=== PATIENT | female | born 1965 | race African-American/Black ===

== ENCOUNTER 2019-08-05 21:19 | Emergency (ER) | payer MEDICAID, OTHER ==
[~2019-08-05] VITALS: Ht 162.6 cm; Wt 50.0 kg
[2019-08-06] MEDS ORDERED: IBUPROFEN 600MG TABLET PO ONE (00:15)
[2019-08-06 00:16] VITALS: BP 128/80
== END 2019-08-06 00:30 | disposition home or self-care (01) ==
LOC: ER 21:19
DX: M25.512 Pain in left shoulder (principal); W01.0XXA Fall on same level from slipping, tripping and stumbling without subsequent striking against object, initial encounter; F41.9 Anxiety disorder, unspecified; F32.9 Major depressive disorder, single episode, unspecified; E11.9 Type 2 diabetes mellitus without complications; Y93.01 Activity, walking, marching and hiking; Y92.488 Other paved roadways as the place of occurrence of the external cause; Z88.0 Allergy status to penicillin
CPT/HCPCS: 99283

== ENCOUNTER 2022-05-15 12:32 | Emergency (ER) | payer OTHER ==
[~2022-05-15] VITALS: Ht 162.6 cm; Wt 69.0 kg
[2022-05-15 12:37] VITALS: BP 120/81
[2022-05-15] MEDS ORDERED: ASPIRIN 81MG TABLET PO ONE (13:00)
[2022-05-15] MEDS ORDERED: ASPIRIN 81MG TABLET PO NR (14:00)
[2022-05-15 15:04] LABS: BASOPHILS % 0.3 % (0.0-2.0); EOSINOPHILS % 2.5 % (0.0-5.0); HEMATOCRIT. 42.9 % (36.0-48.0); HEMOGLOBIN. 14.2 g/dL (12.0-16.0); LYMPHOCYTES % 39.4 % (20.0-50.0); MEAN CORPUSCULAR VOLUME 93.9 fL (81.0-99.0); MEAN PLATELET VOLUME 8.5 fl (7.4-10.4); MONOCYTES % 9.9 % (2.0-8.0); NEUTROPHILS % 47.9 % (40.0-76.0); PLATELET 359 x1000/uL (130-400); RED BLOOD CELL COUNT 4.57 mill/uL (4.2-5.4)
[2022-05-15 15:10] LABS: CHLORIDE 107 mEq/L (98-107)
== END 2022-05-15 17:00 | disposition home or self-care (01) ==
LOC: ER 12:32
DX: R07.89 Other chest pain (principal); F41.9 Anxiety disorder, unspecified; F32.9 Major depressive disorder, single episode, unspecified; E11.9 Type 2 diabetes mellitus without complications; Z88.0 Allergy status to penicillin; Z90.49 Acquired absence of other specified parts of digestive tract; Z87.440 Personal history of urinary (tract) infections; Z98.890 Other specified postprocedural states
CPT/HCPCS: 36415; 71045; 80053; 81003; 83880; 84484; 85025; 93005; 99285

== ENCOUNTER 2022-09-06 20:20 | Emergency (ER) | payer MEDICAID, OTHER ==
[~2022-09-06] VITALS: Ht 167.6 cm; Wt 85.0 kg
[2022-09-06] MEDS ORDERED: KETOROLAC 60MG/2ML VIAL IM ONE (22:30)
[2022-09-07] MEDS ORDERED: HYDROCODONE/ACETAMINOPHEN 5/325MG TABLET PO ONE (04:30)
[2022-09-07] MEDS ORDERED: NAPR-681 MT (04:43)
[2022-09-07] MEDS ORDERED: KETOROLAC 60MG/2ML VIAL IM NR (04:45)
[2022-09-07 05:59] VITALS: BP 136/81
== END 2022-09-07 06:01 | disposition home or self-care (01) ==
LOC: ER 20:20
DX: M25.551 Pain in right hip (principal); Z88.0 Allergy status to penicillin
CPT/HCPCS: 73502; 96372; 99283; J1885

== ENCOUNTER 2023-09-13 04:48 | Emergency (ER) | payer MEDICAID ==
[~2023-09-13] VITALS: Ht 162.6 cm; Wt 61.0 kg
[~2023-09-13 04:48] MED LIST: ACET-2708 MT; NAPR-681 MT; POTA-204 MT
[2023-09-13 04:51] VITALS: BP 146/86; PULSE 76; RESP 18; TEMP 98; O2SAT 98
[2023-09-13 05:26] LABS: BASOPHILS % 0.5 % (0.0-2.0); DIFFERENTIAL COMMENT 0; EOSINOPHILS % 1.8 % (0.0-5.0); HEMATOCRIT. 37.9 % (36.0-48.0); HEMOGLOBIN. 12.6 g/dL (12.0-16.0); LYMPHOCYTES % 23.5 % (20.0-50.0); MEAN CORPUSCULAR HEMOGLOBIN 31.3 pg (28.0-32.0); MEAN CORPUSCULAR HGB CONC 33.3 g/dL (31.0-37.0); MEAN CORPUSCULAR VOLUME 94.1 fL (81.0-99.0); MEAN PLATELET VOLUME 9.4 fl (7.4-10.4); MONOCYTES % 10.4 % (2.0-8.0); NEUTROPHILS % 63.8 % (40.0-76.0); PLATELET 275 x1000/uL (130-400); RED BLOOD CELL COUNT 4.03 mill/uL (4.2-5.4); RED CELL DISTRIBUTION WIDTH 13.5 % (11.6-14.6); WHITE BLOOD COUNT 5.6 x1000/uL (4.5-11.0)
[2023-09-13 05:35] LABS: CHLORIDE 108 mEq/L (98-107); INDEX HEMOLYSI 1 (1-3); INDEX ICTERIC 1 (1-4); INDEX LIPEMIC 1 (1-3); SODIUM 142 mEq/L (136-145)
[2023-09-13 05:41] LABS: CLARITY URINE CLOUDY (CLEAR); COLOR URINE DARK YELLOW (YELLOW); GLUCOSE URINE NEGATIVE (NEGATIVE); KETONES URINE NEGATIVE (NEGATIVE); LEUKOCYTE ESTERASE URINE 1+ (NEGATIVE); NITRITE URINE POSITIVE (NEGATIVE); OCCULT BLOOD URINE NEGATIVE (NEGATIVE); PH URINE 5.5 (4.5-8.0); PROTEIN URINE TRACE (NEGATIVE); SPECIFIC GRAVITY URINE 1.026 (1.005-1.030)
[2023-09-13 05:43] LABS: ALANINE AMINOTRANSFERASE 20 IU/L (13-61); ALBUMIN 3.5 g/dL (3.4-5.0); ASPARTATE AMINOTRANSFERASE 18 IU/L (15-37); BILIRUBIN TOTAL 0.9 mg/dL (0.1-1.0); CALCIUM 8.3 mg/dL (8.5-10.1); CARBON DIOXIDE 30 mEq/L (21-32); CREATININE 0.5 mg/dL (0.6-1.3); ETHANOL BLOOD < 10 mg/dL (<10); GLUCOSE 125 mg/dL (70-105); PROTEIN TOTAL 7.7 g/dL (6.0-8.3); UREA NITROGEN BLOOD 9 mg/dL (7-21)
[2023-09-13 05:44] LABS: RBC URINE 0-2 /hpf (0-2); YEAST URINE NONE SEEN
[2023-09-13 05:46] LABS: POTASSIUM 2.8 mEq/L (3.5-5.1)
[2023-09-13 05:51] LABS: *AMPHETAMINES SCREEN URINE PRESUMTIVE POSITIVE (NEGATIVE); *BARBITURATES SCREEN URINE NEGATIVE (NEGATIVE); *BENZODIAZEPINES SCREEN URINE NEGATIVE (NEGATIVE); *COCAINE SCREEN URINE NEGATIVE (NEGATIVE); CANNABINOID URINE SCREEN PRESUMTIVE POSITIVE (NEGATIVE); ECSTASY MDMA SCREEN URINE CONF.TEST INDICATED (NEGATIVE); METHADONE URINE SCREEN NEGATIVE (NEGATIVE); OPIATES URINE SCREEN NEGATIVE (NEGATIVE); PHENCYCLIDINE URINE SCREEN NEGATIVE (NEGATIVE)
[2023-09-13 05:54] LABS: PROTHROMBIN TIME 10.9 sec (9.6-11.0)
[2023-09-13 06:25] LABS: SQUAMOUS EPITHELIAL CELL URINE 1+ /lpf (RARE/1+)
[2023-09-13 06:26] LABS: BACTERIA URINE 3+
[2023-09-13 06:47] LABS: TROPONIN I HIGH SENSITIVITY 6 ng/L (<54)
[2023-09-13] MEDS ORDERED: POTASSIUM CHLORIDE 20MEQ/PACKET PO ONE (08:30)
[2023-09-13] MEDS ORDERED: NAPR-681 MT (14:42)
[2023-09-13] MEDS ORDERED: POTA-204 MT (14:42)
[2023-09-13] MEDS ORDERED: ACET-2708 MT (14:42)
[2023-09-13] MEDS ORDERED: NITR-87 MT (14:42)
== END 2023-09-13 15:20 | disposition home or self-care (01) ==
LOC: ER 04:48
DX: R10.33 Periumbilical pain (principal); F15.10 Other stimulant abuse, uncomplicated
CPT/HCPCS: 36415; 80053; 80305; 80320; 81003; 83605; 84484; 85025; 93005; 99284; G0480

== ENCOUNTER 2024-03-08 00:06 | Emergency (ER) | payer MEDICAID ==
[~2024-03-08] VITALS: Ht 162.6 cm; Wt 60.0 kg
[~2024-03-08 00:06] MED LIST changes: +BUPR-114 PO; +GABA-532 PO; +GABA800T97 PO; +LIDO1ADH62 TP; +NALT50TA PO; -POTA-204 MT; +RISP1 PO
[2024-03-08 00:12] VITALS: O2SAT 98
[2024-03-08 02:05] LABS: BASOPHILS % 0.7 % (0.0-2.0); HEMATOCRIT. 37.5 % (36.0-48.0); HEMOGLOBIN. 12.5 g/dL (12.0-16.0); LYMPHOCYTES % 24.1 % (20.0-50.0); MEAN CORPUSCULAR HEMOGLOBIN 31.8 pg (28.0-32.0); MEAN CORPUSCULAR HGB CONC 33.2 g/dL (31.0-37.0); MEAN CORPUSCULAR VOLUME 95.6 fL (81.0-99.0); MEAN PLATELET VOLUME 8.6 fl (7.4-10.4); NEUTROPHILS % 65.2 % (40.0-76.0); PLATELET 274 x1000/uL (130-400); RED BLOOD CELL COUNT 3.93 mill/uL (4.2-5.4); RED CELL DISTRIBUTION WIDTH 14.4 % (11.6-14.6)
[2024-03-08 02:15] LABS: CHLORIDE 112 mEq/L (98-107); POTASSIUM 3.5 mEq/L (3.5-5.1); SODIUM 141 mEq/L (136-145)
[2024-03-08 02:16] LABS: CALCIUM 8.5 mg/dL (8.7-10.4); CARBON DIOXIDE 23 mEq/L (21-32)
[2024-03-08 02:21] LABS: CREATININE 0.5 mg/dL (0.6-1.0); GLUCOSE 113 mg/dL (70-105); UREA NITROGEN BLOOD 14 mg/dL (9-23)
[2024-03-08 02:23] LABS: ACETAMINOPHEN 2 ug/mL (10-30); ALANINE AMINOTRANSFERASE 13 IU/L (10-49); ALBUMIN 4.3 g/dL (3.2-4.8); ASPARTATE AMINOTRANSFERASE 22 IU/L (<34); BILIRUBIN TOTAL 1.8 mg/dL (0.1-1.0); PROTEIN TOTAL 7.4 g/dL (6.0-8.3)
[2024-03-08 02:24] LABS: ETHANOL BLOOD < 10 mg/dL (<10)
[2024-03-08 13:26] VITALS: BP 110/68; PULSE 71; RESP 16; TEMP 98.1
== END 2024-03-08 15:42 | disposition home or self-care (01) ==
LOC: ER 00:06
DX: R45.851 Suicidal ideations (principal); F20.9 Schizophrenia, unspecified; F43.10 Post-traumatic stress disorder, unspecified; F15.90 Other stimulant use, unspecified, uncomplicated; Z88.0 Allergy status to penicillin; Z20.822 Contact with and (suspected) exposure to COVID-19
CPT/HCPCS: 80053; 80307; 80329; 80320; 85025; 36415; 99285; 87426; Z7610 ×5; G0480

== ENCOUNTER 2024-04-29 14:41 | Inpatient (IN) | payer MEDICAID ==
[~2024-04-29] VITALS: Ht 162.6 cm; Wt 76.2 kg
[2024-04-29] MEDS: SODIUM CHLORIDE 0.9% 2,000 ML IV ONE (15:15)
[2024-04-29 15:53] LABS: BASOPHILS % 0.8 % (0.0-2.0); EOSINOPHILS % 1.4 % (0.0-5.0); HEMATOCRIT. 41.4 % (36.0-48.0); LYMPHOCYTES % 23.2 % (20.0-50.0); MEAN CORPUSCULAR HEMOGLOBIN 32.7 pg (28.0-32.0); MEAN CORPUSCULAR HGB CONC 33.8 g/dL (31.0-37.0); MEAN CORPUSCULAR VOLUME 96.6 fL (81.0-99.0); MEAN PLATELET VOLUME 9.1 fl (7.4-10.4); MONOCYTES % 7.9 % (2.0-8.0); NEUTROPHILS % 66.7 % (40.0-76.0); PLATELET 334 x1000/uL (130-400); RED BLOOD CELL COUNT 4.28 mill/uL (4.2-5.4); RED CELL DISTRIBUTION WIDTH 14.7 % (11.6-14.6)
[2024-04-29 15:58] LABS: CHLORIDE 108 mEq/L (98-107); SODIUM 142 mEq/L (136-145)
[2024-04-29 15:59] LABS: CARBON DIOXIDE 25 mEq/L (21-32)
[2024-04-29 16:00] LABS: CALCIUM 9.6 mg/dL (8.7-10.4)
[2024-04-29 16:04] LABS: CREATININE 0.8 mg/dL (0.6-1.0)
[2024-04-29 16:05] LABS: GLUCOSE 102 mg/dL (70-105); UREA NITROGEN BLOOD 20 mg/dL (9-23)
[2024-04-29 16:06] LABS: AMMONIA 31 uMol/L (<32); TROPONIN I HIGH SENSITIVITY 12 ng/L (3.0-34)
[2024-04-29 16:07] LABS: ETHANOL BLOOD < 10 mg/dL (<10)
[2024-04-29 16:09] LABS: POTASSIUM 2.7 mEq/L (3.5-5.1)
[2024-04-29] MEDS: POTASSIUM CHLORIDE 20MEQ/PACKET PO ONE (16:24)
[2024-04-29 16:37] LABS: CREATINE KINASE 1288 IU/L (34-145)
[2024-04-29 21:58] VITALS: BP 118/72; PULSE 81; PULSE 87; RESP 18; TEMP 97.5
[2024-04-29] MEDS ORDERED: CELE-116 PO (22:20)
[2024-04-29] MEDS ORDERED: RISP3TAB76 PO (22:20)
[2024-04-30] VITALS: BP 121/73; PULSE 77; RESP 18; TEMP 97.5
[2024-04-30] MEDS ORDERED: CLONIDINE 0.1MG TABLET PO PRN (00:30)
[2024-04-30] MEDS ORDERED: IPRATROPIUM/ALBUTEROL 0.5-3(2.5)MG/3ML NEB NEB PRN (00:30)
[2024-04-30] MEDS ORDERED: ACETAMINOPHEN 325MG TABLET PO PRN (00:30)
[2024-04-30] MEDS ORDERED: ONDANSETRON HCL 4MG/2ML INJ IV PRN (00:30)
[2024-04-30] MEDS: SODIUM CHLORIDE 0.9% 1,000 ML IV SCH (00:58)
[2024-04-30 04:00] VITALS: BP 105/75; PULSE 77; RESP 18; TEMP 97.6
[2024-04-30 06:27] LABS: BASOPHILS % 0.8 % (0.0-2.0); EOSINOPHILS % 3.1 % (0.0-5.0); HEMATOCRIT. 38.6 % (36.0-48.0); HEMOGLOBIN. 12.9 g/dL (12.0-16.0); LYMPHOCYTES % 31.9 % (20.0-50.0); MEAN CORPUSCULAR HEMOGLOBIN 32.2 pg (28.0-32.0); MEAN CORPUSCULAR HGB CONC 33.3 g/dL (31.0-37.0); MEAN CORPUSCULAR VOLUME 96.7 fL (81.0-99.0); MEAN PLATELET VOLUME 9.6 fl (7.4-10.4); NEUTROPHILS % 55.2 % (40.0-76.0); PLATELET 275 x1000/uL (130-400); RED BLOOD CELL COUNT 3.99 mill/uL (4.2-5.4); RED CELL DISTRIBUTION WIDTH 14.3 % (11.6-14.6); WHITE BLOOD COUNT 6.3 x1000/uL (4.5-11.0)
[2024-04-30 06:29] LABS: CHLORIDE 110 mEq/L (98-107); SODIUM 142 mEq/L (136-145)
[2024-04-30 06:30] LABS: CARBON DIOXIDE 24 mEq/L (21-32)
[2024-04-30 06:31] LABS: CALCIUM 8.3 mg/dL (8.7-10.4)
[2024-04-30 06:34] LABS: CREATINE KINASE MB FRACTION 9.3 ng/mL (0.5-3.6)
[2024-04-30 06:36] LABS: GLUCOSE 96 mg/dL (70-105); UREA NITROGEN BLOOD 14 mg/dL (9-23)
[2024-04-30 07:46] LABS: CREATININE 0.5 mg/dL (0.6-1.0); POTASSIUM 2.7 mEq/L (3.5-5.1)
[2024-04-30 08:00] VITALS: BP 122/62; PULSE 71; RESP 18; TEMP 98.1
[2024-04-30] MEDS: POTASSIUM CHLORIDE 20MEQ TABLET SR PO SCH (09:18)
[2024-04-30] MEDS: ENOXAPARIN 40MG/0.4ML SYR SUBCUT SCH (09:19)
[2024-04-30] MEDS: MORPHINE SULFATE 2 MG/ML INJ (NOT FOR IM USE) IV PRN (10:41)
[2024-04-30 12:00] VITALS: BP 105/50; PULSE 80; RESP 18; TEMP 97.9
[2024-04-30] MEDS: DIPHENHYDRAMINE 50MG/ML VIAL IM PRN (13:58)
[2024-04-30 16:00] VITALS: BP 122/71; PULSE 75; RESP 18; TEMP 97.2
[2024-04-30] MEDS: KCL 20MEQ/100ML PREMIX 100 ML IV SCH (18:25)
[2024-04-30 20:00] VITALS: BP 122/82; PULSE 74; RESP 18; TEMP 98.2
[2024-05-01] VITALS: BP 121/72; PULSE 74; RESP 18; TEMP 97.9
[2024-05-01 04:00] VITALS: BP 121/77; PULSE 73; RESP 18; TEMP 97.5
[2024-05-01 06:10] LABS: EOSINOPHILS % 3.6 % (0.0-5.0); HEMATOCRIT. 35.7 % (36.0-48.0); HEMOGLOBIN. 11.7 g/dL (12.0-16.0); LYMPHOCYTES % 41.4 % (20.0-50.0); MEAN CORPUSCULAR HEMOGLOBIN 32.1 pg (28.0-32.0); MEAN CORPUSCULAR HGB CONC 32.8 g/dL (31.0-37.0); MEAN CORPUSCULAR VOLUME 97.8 fL (81.0-99.0); MEAN PLATELET VOLUME 9.4 fl (7.4-10.4); MONOCYTES % 10.8 % (2.0-8.0); NEUTROPHILS % 43.2 % (40.0-76.0); PLATELET 267 x1000/uL (130-400); RED BLOOD CELL COUNT 3.65 mill/uL (4.2-5.4); RED CELL DISTRIBUTION WIDTH 14.3 % (11.6-14.6); WHITE BLOOD COUNT 4.6 x1000/uL (4.5-11.0)
[2024-05-01 06:13] LABS: CARBON DIOXIDE 24 mEq/L (21-32); CHLORIDE 108 mEq/L (98-107); POTASSIUM 3.7 mEq/L (3.5-5.1); SODIUM 141 mEq/L (136-145)
[2024-05-01 06:15] LABS: CALCIUM 8.1 mg/dL (8.7-10.4)
[2024-05-01 06:19] LABS: CREATINE KINASE MB FRACTION 2.8 ng/mL (0.5-3.6); CREATININE 0.4 mg/dL (0.6-1.0)
[2024-05-01 06:20] LABS: GLUCOSE 99 mg/dL (70-105); UREA NITROGEN BLOOD 7 mg/dL (9-23)
[2024-05-01 08:00] VITALS: BP 135/53; PULSE 74; RESP 18; TEMP 97.9
[2024-05-01 12:00] VITALS: BP 130/75; PULSE 80; RESP 18; TEMP 98
[2024-05-01 16:00] VITALS: BP 127/80; PULSE 66; RESP 16; TEMP 97
[2024-05-01 20:00] VITALS: BP 141/89; PULSE 72; RESP 18; TEMP 98.9
[2024-05-02] VITALS: BP 123/69; PULSE 70; RESP 18; TEMP 97.6
[2024-05-02 04:00] VITALS: BP 116/72; PULSE 66; RESP 18; TEMP 98.8
[2024-05-02 07:00] LABS: BASOPHILS % 1.1 % (0.0-2.0); EOSINOPHILS % 3.9 % (0.0-5.0); HEMATOCRIT. 40.2 % (36.0-48.0); HEMOGLOBIN. 13.2 g/dL (12.0-16.0); LYMPHOCYTES % 46.5 % (20.0-50.0); MEAN CORPUSCULAR HEMOGLOBIN 31.9 pg (28.0-32.0); MEAN CORPUSCULAR HGB CONC 32.8 g/dL (31.0-37.0); MEAN CORPUSCULAR VOLUME 97.1 fL (81.0-99.0); MEAN PLATELET VOLUME 9.7 fl (7.4-10.4); MONOCYTES % 12.7 % (2.0-8.0); NEUTROPHILS % 35.8 % (40.0-76.0); PLATELET 279 x1000/uL (130-400); RED BLOOD CELL COUNT 4.14 mill/uL (4.2-5.4); RED CELL DISTRIBUTION WIDTH 14.7 % (11.6-14.6); WHITE BLOOD COUNT 3.6 x1000/uL (4.5-11.0)
[2024-05-02 07:11] LABS: CARBON DIOXIDE 25 mEq/L (21-32); CHLORIDE 104 mEq/L (98-107); POTASSIUM 3.7 mEq/L (3.5-5.1); SODIUM 140 mEq/L (136-145)
[2024-05-02 07:12] LABS: CALCIUM 8.8 mg/dL (8.7-10.4)
[2024-05-02 07:17] LABS: CREATININE 0.4 mg/dL (0.6-1.0); GLUCOSE 94 mg/dL (70-105); UREA NITROGEN BLOOD 9 mg/dL (9-23)
[2024-05-02 08:03] VITALS: BP 123/79; PULSE 67; RESP 20; TEMP 97.6
[2024-05-02 12:00] VITALS: BP 128/83; PULSE 78; RESP 20; TEMP 98.6
[2024-05-02 16:00] VITALS: BP 120/63; PULSE 69; RESP 20; TEMP 97.9
[2024-05-02 20:00] VITALS: BP 121/69; PULSE 70; RESP 18; TEMP 98.7
[2024-05-03] VITALS: BP 115/73; PULSE 70; RESP 18; TEMP 98.6
[2024-05-03 04:00] VITALS: BP 120/70; PULSE 72; RESP 18; TEMP 98.7
[2024-05-03 11:56] VITALS: BP 120/77; PULSE 70; RESP 18; TEMP 97.6
[2024-05-03 16:30] VITALS: BP 106/51; PULSE 65; RESP 20; TEMP 97.8
[2024-05-03 20:00] VITALS: BP 121/77; PULSE 71; RESP 20; TEMP 97.9
[2024-05-04] VITALS: BP 120/63; PULSE 62; RESP 18; TEMP 98.1
[2024-05-04 04:00] VITALS: BP 119/67; PULSE 64; RESP 18; TEMP 97.8
[2024-05-04 08:00] VITALS: BP 115/65; PULSE 65; RESP 18; TEMP 97.6
[2024-05-04 14:43] LABS: HEPATITIS B SURFACE ANTIGEN NEGATIVE (Negative)
[2024-05-04 15:05] LABS: HEPATITIS C AB NON REACTIVE (Neg) (Negative)
[2024-05-04 16:00] VITALS: BP 116/60; PULSE 69; RESP 18; TEMP 97.3
[2024-05-04] MEDS ORDERED: NALOXONE HCL 0.4MG/ML VIAL IV PRN (16:45)
[2024-05-04 20:00] VITALS: BP 117/72; PULSE 66; RESP 18; TEMP 98.3
[2024-05-04] MEDS: RISPERIDONE 0.5MG TABLET PO SCH (21:16)
[2024-05-04] MEDS: BUPROPION HCL 75MG TABLET PO SCH (21:17)
[2024-05-05] VITALS (7 sets, daily range): BP systolic 95–119; BP diastolic 49–75; PULSE 68–88; RESP 18–20; TEMP 97.2–98.2
[2024-05-06] VITALS (7 sets, daily range): BP systolic 89–135; BP diastolic 54–85; PULSE 77–98; RESP 18–20; TEMP 97.3–98.4
[2024-05-06] MEDS ORDERED: *PATIENT'S OWN MEDICATION STORAGE XX SCH (16:45)
[2024-05-06] MEDS: GABAPENTIN 300MG CAPSULE PO SCH (21:35)
[2024-05-06] MEDS: CELECOXIB 200MG CAPSULE PO SCH (21:45)
[2024-05-07 04:00] VITALS: BP 121/72; PULSE 85; RESP 19; TEMP 98
[2024-05-07 08:10] VITALS: BP 118/70; PULSE 69; RESP 18; TEMP 97.9
[2024-05-07] MEDS: OMEPRAZOLE 20MG CAPSULE EXTENDED RELEASE PO SCH (08:13)
[2024-05-07 12:00] VITALS: BP 125/90; PULSE 78; RESP 20; TEMP 98.9
[2024-05-07 16:03] VITALS: BP 102/81; PULSE 77; RESP 18; TEMP 97.9
[2024-05-07 20:00] VITALS: BP 115/71; PULSE 67; RESP 20; TEMP 98
[2024-05-08] VITALS: BP 100/57; PULSE 81; RESP 20; TEMP 96.6
[2024-05-08 04:00] VITALS: BP 113/65; PULSE 80; RESP 19; TEMP 97.5
[2024-05-08 07:50] VITALS: BP 151/76; PULSE 77; RESP 20; TEMP 98.1
[2024-05-08 12:09] VITALS: BP 126/74; PULSE 74; RESP 18; TEMP 98.2
[2024-05-08] MEDS: FLUTICASONE PROPIONATE 50MCG/SPRAY BOTTLE BOTHNSTRLS SCH (15:22)
[2024-05-08 16:00] VITALS: BP 124/79; PULSE 75; RESP 18; TEMP 98
[2024-05-08 20:38] VITALS: BP 138/107; PULSE 63; RESP 20; TEMP 97.8
[2024-05-09 00:26] VITALS: BP 145/78; PULSE 73; RESP 18; TEMP 97.5
[2024-05-09 04:00] VITALS: BP 121/76; PULSE 66; RESP 19; TEMP 97.3
[2024-05-09 08:00] VITALS: BP 125/69; PULSE 81; RESP 18; TEMP 97.2
[2024-05-09] MEDS: FAMOTIDINE 20MG TABLET PO SCH (08:58)
[2024-05-09 12:00] VITALS: BP 136/95; PULSE 88; RESP 18; TEMP 98
[2024-05-09 16:00] VITALS: BP 141/81; PULSE 77; RESP 18; TEMP 98
[2024-05-09 20:00] VITALS: BP 124/45; PULSE 59; RESP 18; TEMP 98.2
[2024-05-10] VITALS: BP 121/58; PULSE 60; RESP 18; TEMP 97.5
[2024-05-10 04:00] VITALS: BP 118/59; PULSE 72; RESP 18; TEMP 97.5
[2024-05-10 08:00] VITALS: BP 114/64; PULSE 76; RESP 18; TEMP 98.2
[2024-05-10 12:00] VITALS: BP 120/82; PULSE 81; RESP 18; TEMP 97.5
[2024-05-10 16:00] VITALS: BP 116/76; PULSE 75; RESP 18; TEMP 98.2
[2024-05-10 20:00] VITALS: BP 132/90; PULSE 81; RESP 18; TEMP 97.6
[2024-05-11] VITALS: BP 122/71; PULSE 70; RESP 19; TEMP 98.4
[2024-05-11 04:00] VITALS: BP 105/58; PULSE 66; RESP 18; TEMP 97.6
[2024-05-11 08:00] VITALS: BP 110/52; PULSE 57; RESP 20; TEMP 98
[2024-05-11 11:06] LABS: BASOPHILS % 1.4 % (0.0-2.0); EOSINOPHILS % 3.3 % (0.0-5.0); HEMATOCRIT. 42.3 % (36.0-48.0); LYMPHOCYTES % 46.2 % (20.0-50.0); MEAN CORPUSCULAR HEMOGLOBIN 32.1 pg (28.0-32.0); MEAN CORPUSCULAR HGB CONC 33.1 g/dL (31.0-37.0); MEAN CORPUSCULAR VOLUME 96.8 fL (81.0-99.0); MEAN PLATELET VOLUME 9.4 fl (7.4-10.4); MONOCYTES % 9.6 % (2.0-8.0); NEUTROPHILS % 39.5 % (40.0-76.0); PLATELET 325 x1000/uL (130-400); RED BLOOD CELL COUNT 4.37 mill/uL (4.2-5.4); RED CELL DISTRIBUTION WIDTH 14.2 % (11.6-14.6); WHITE BLOOD COUNT 4.1 x1000/uL (4.5-11.0)
[2024-05-11 11:15] LABS: CHLORIDE 107 mEq/L (98-107); POTASSIUM 3.7 mEq/L (3.5-5.1); SODIUM 140 mEq/L (136-145)
[2024-05-11 11:16] LABS: CALCIUM 9.2 mg/dL (8.7-10.4); CARBON DIOXIDE 23 mEq/L (21-32)
[2024-05-11 11:21] LABS: CREATININE 0.6 mg/dL (0.6-1.0); GLUCOSE 113 mg/dL (70-105)
[2024-05-11 11:22] LABS: UREA NITROGEN BLOOD 10 mg/dL (9-23)
[2024-05-11 12:00] VITALS: BP 118/61; PULSE 68; RESP 16; TEMP 98.1
[2024-05-11 16:00] VITALS: BP 140/95; PULSE 69; RESP 22; TEMP 97.9
[2024-05-11 20:00] VITALS: BP_SYST 115; BP_SYST 14; BP_SYST 145; BP_DIAS 70; BP_DIAS 88; PULSE 102; PULSE 79; RESP 18; RESP 20; TEMP 97.5; TEMP 98.1
[2024-05-12] VITALS: BP 106/50; PULSE 68; RESP 19; TEMP 97.7
[2024-05-12 04:00] VITALS: BP 136/68; PULSE 97; RESP 20; TEMP 97.3
[2024-05-12 08:00] VITALS: BP 128/79; PULSE 98; RESP 22; TEMP 98.6
[2024-05-12 12:00] VITALS: BP 108/75; PULSE 95; RESP 20; TEMP 98
[2024-05-12 16:00] VITALS: BP 128/69; PULSE 58; RESP 22; TEMP 98.1
[2024-05-12 20:37] VITALS: BP 125/75; PULSE 73; RESP 18; TEMP 98.1
[2024-05-13] VITALS: BP 99/51; PULSE 66; RESP 19; TEMP 97.1
[2024-05-13 04:00] VITALS: BP 102/75; PULSE 65; RESP 19; TEMP 97.8
[2024-05-13 09:59] VITALS: BP 95/47; PULSE 68; RESP 16; TEMP 97.5
[2024-05-13 12:38] VITALS: BP 102/69; PULSE 66; RESP 16; TEMP 97.4
[2024-05-13 14:54] VITALS: BP 102/69; PULSE 66; TEMP 97.5; O2SAT 100
[2024-05-13 16:12] VITALS: BP 96/66; PULSE 71; RESP 16; TEMP 97.6
== END 2024-05-13 18:10 | disposition home or self-care (01) | DRG 351 ==
LOC: ER 14:41 → EDBEDREQTM 19:41 → EDBEDREQ 19:41 → EDBEDREQSVC 19:41 → 7WST 21:51
PROVIDERS: ADMIT Internal Medicine; ATTEND Internal Medicine
DX: M16.11 Unilateral primary osteoarthritis, right hip (principal); G93.40 Encephalopathy, unspecified; M62.82 Rhabdomyolysis; M54.16 Radiculopathy, lumbar region; F20.9 Schizophrenia, unspecified; Z20.822 Contact with and (suspected) exposure to COVID-19; G62.9 Polyneuropathy, unspecified; I10 Essential (primary) hypertension; G89.29 Other chronic pain; E87.6 Hypokalemia; Z88.0 Allergy status to penicillin; Z79.899 Other long term (current) drug therapy
CPT/HCPCS: 36415; 71045; 73521; 80048; 80320; 82140; 82550; 82553; 83605; 84484; 85025; 86705; 87340; 87426; 87493; 87804; 93970; 97116; 97162; 99285; C1893; J1200; J1650; J2270; J3480; J7030; G0480